=== PATIENT | male | born 1960 | race Caucasian/White ===

== ENCOUNTER → 2024-05-08 12:28 | Outpatient (REF) | payer OTHER, SELFPAY | LOC: HWRAD 12:28 | PROVIDERS: ATTENDING PHYSICIAN Student in an Organized Health Care Education/Training Program | DX: M25.572 Pain in left ankle and joints of left foot (principal) | CPT/HCPCS: 73610 ==

== ENCOUNTER 2024-09-10 06:34 | Day surgery (SDC) | payer OTHER, SELFPAY | END 2024-09-10 15:05 | disposition home or self-care (01) | LOC: GI 06:34 | PROVIDERS: ATTENDING PHYSICIAN Internal Medicine Gastroenterology | DX: Z12.11 Encounter for screening for malignant neoplasm of colon (principal); Z86.0100 Personal history of colon polyps, unspecified; K57.30 Diverticulosis of large intestine without perforation or abscess without bleeding; K64.8 Other hemorrhoids; K62.89 Other specified diseases of anus and rectum | CPT/HCPCS: G0105 ==